=== PATIENT | female | born 1955 | race Caucasian/White ===

== ENCOUNTER 2019-07-20 00:58 | Day surgery (SDC) | payer MEDICARE, OTHER, SELFPAY ==
[2019-07-09 10:40] VITALS: BMI 27.3
[2019-07-20] VITALS (15 sets, daily range): BP systolic 94–152; BP diastolic 43–74; PULSE 80–94; RESP 14–86; TEMP 36.2–37.3; O2SAT 90–100
--- NOTE | 2019-07-20 07:18 | WPDHPUPDATE1 ---
History and Physical Update Update Date/Time: 07/20/19 07:18 History and Physical has been reviewed, including an updated exam of the patient. There are NO changes in the patient's condition. Risks, benefits, and alternatives have been discussed and questions answered. Patient agrees to proceed with procedure.
[2019-07-20] MEDS: LACTATED RINGERS 1,000 ML 30 ML IV CONT ×2 (10:00→13:37)
--- NOTE | 2019-07-20 10:20 | P.PNAN_ITS ---
Anes - Initial Pre Proc Eval Procedure: Operation Date: 07/20/19 12:00 Proposed Procedures p Robotic Sacrocolpopexy With Possible Urethral Sling - Leonides Irving MD Date/Time: 07/20/19 10:20 Surgeon: Leonides Irving MD Pre Op Diagnosis: Cystocele/ Uterine Prolapse Patient Data Age: 64 Gender: F Height: 5 ft 6 in Weight: 75.8 kg Last Vital Signs Temp 98.2 F 07/20/19 09:42 Pulse 93 07/20/19 09:42 Resp 18 07/20/19 09:42 BP 133/43 L 07/20/19 09:42 Pulse Ox 97 07/20/19 09:42 Allergies Allergy/AdvReac Type Severity Reaction Status Date / Time No Known Allergies Allergy Verified 07/20/19 09:47 Home Medications Medication Instructions Recorded Confirmed Type adalimumab [Humira Pen] 40 mg SUBCUT [id number] 07/09/19 07/20/19 History alendronate 35 mg PO WEEKLY 07/09/19 07/20/19 History amlodipine 10 mg PO DAILY 07/09/19 07/20/19 History cholecalciferol (vitamin D3) 2,000 unit PO DAILY 07/09/19 07/20/19 History [Vitamin D3] citalopram 40 mg PO DAILY 07/09/19 07/20/19 History hydrochlorothiazide 25 mg PO DAILY 07/09/19 07/20/19 History cugkpvlpysjl-Db-jpcf-minerals 1 tablet PO DAILY 07/09/19 07/20/19 History [Multiple Vitamin, Womens] simvastatin 40 mg PO DAILY 07/09/19 07/20/19 History Patient hx anesthesia problems: none Family hx anesthesia problems: none [facility] Past Medical History Medical History (Updated 07/20/19 @ 10:20 by Leandro Orosco MD) Anxiety Hyperlipidemia Hypertension Social History Social History (Updated 07/20/19 @ 10:21 by Leandro Orosco MD) Smoking packs per day: 0.5 Smoking cigarettes per day: 10.0 Years smoked: 25 Smoking pack-years: 12.50 Smoking status: Current every day smoker Alcohol intake: never Gender identity (if verbalized by the patient): Female Anes - Eval Final PreProcedure Day of Procedure 07/20/19 10:20 Patient weight: normal Heart: regular rate and rhythm Lungs: clear to auscultation Airway: Mallampati scale class II Neurological: alert and oriented Last oral intake: >/= 8 hours ASA classification: II Emergent: no Anesthetic plan: proceed Anesthesia type and monitoring: general ETT and standard monitoring Informed Consent: The patient's anesthetic plan and its attendant risks and benefits were discussed with the patient/family/POA. Questions were solicited and answers provided to the satisfaction of the patient/family/POA.
[2019-07-20] MEDS: ceFAZolin 2 GM/D5W 50 ML 2 GM/50 ML BAG IVPB (10:41)
[2019-07-20] MEDS: BUPIVACAINE/EPINEPHRINE 0.25% 50 ML VIAL 20 ML INFILTRATE (11:10)
--- NOTE | 2019-07-20 11:46 | SUR.OPER ---
david russo y-mesh [id number] lot [id number], exp 2023-10-16.
--- NOTE | 2019-07-20 12:59 | SUR.OPER ---
robot end [id number].
--- NOTE | 2019-07-20 13:04 | SUR.OPER ---
start urethral sling 13:04.
--- NOTE | 2019-07-20 13:09 | SUR.OPER ---
ye waller urethral mesh/lot [id number], exp 2022-03-18,
--- NOTE | 2019-07-20 13:22 | PM.PROC ---
Procedure Note - Detailed Date of procedure: 07/20/19 Pre-op diagnosis: Cystocele/ Uterine Prolapse Post hysterectomy vaginal vault prolapse Stress urinary incontinence Post-op diagnosis: same Procedure performed: Robotic assisted laparoscopic sacral colpopexy Nell urethral sling Description of procedure: She understands the risks of bleeding, infection, recurrence of prolapse, diskitis, postoperative voiding dysfunction including incontinence and retention, dyspareunia, persistent or recurrent stress incontinence, vaginal mesh extrusion, urinary tract mesh erosion, bowel injury or obstruction, damage to surrounding organs, medical related complications. Agrees to proceed She was correctly identified and informed consent was obtained. She is brought to the operating room. She was given general anesthesia. She was placed in the low lithotomy position. All pressure points were padded. She was given appropriate perioperative antibiotics. A time-out was performed. I anesthetized the skin 3 fingerbreadths cephalad to the umbilicus. I incised the skin. I located the fascia. I entered the fascia sharply. I placed Vicryl sutures for later fascial closure. I placed a midline trocar. Under direct vision 2 additional trocars were placed in the right and left upper quadrant. She was placed in steep Trendelenburg. The robot was docked. I then sat at the console. There was a adhesion of small bowel to the left lateral sidewall. This was taken down sharply. I took great care not to injure any bowel. This is a somewhat thick adhesion with some serosal excoriation. I did a figure of 8 Monocryl suture to buttress of the serosal excoriation. With the Sizer in the vagina I created a plane on the anterior and posterior vaginal wall. I took great care not to injure the vagina bladder or rectum. I introduced the mesh into the abdomen. I sewed the anterior leaflet of mesh on the anterior vaginal wall and posterior leaflet of mesh on the posterior vaginal wall with several sutures with 2 Goritex taking great care not to go through and through. I then reflected the colon laterally. I opened up the peritoneum over the sacral promontory. I carried this incision into the cul-de-sac. I located the ureter and kept lateral. I freed up the edges of the peritoneum. I located the anterior longitudinal ligament of the sacrum. I then tensioned my mesh appropriately. I did a vaginal exam to ensure prolapse reduction without undue tension. I then sewed the proximal leaflet of mesh onto the ligament with 3 sutures of 2 0 Circle-Ochoa. I used a 2 0 Monocryl to completely and meticulously retroperitonealized all mesh. I allowed the colon to go back into its normal anatomic location no sign of any impingement or stricturing. The abdomen was exited. Fascial sutures were closed. Skin was closed. Glue was applied. She was repositioned and prepped for urethral sling. I marked out the thigh incisions. I anesthetized the skin and made those incisions. I anesthetized the anterior vaginal wall over the mid urethra. I made a 1 cm incision. I dissected out laterally taking great care not to injure the urethra or the vaginal wall. I passed the helical trocars. First on the left and then on the right. This was done from the thigh incision towards the vaginal incision. The sling was connected to the trocars and brought out through the thigh incision. I tensioned the sling appropriately. I cut and removed the plastic sheaths. I then closed the incision with 2 0 Vicryl. Cystoscopy showed no surgical artifact in the bladder. No surgical artifact in the urethra. Ureteral orifices were seen to excrete clear yellow urine. The White catheter was replaced. She was awakened and transferred to the PACU in stable condition. Implants: Y mesh Anesthesia: GETA Surgeon: Leonides Irving MD Drains: Yes (White catheter) Packing: No Pathology: none sent Complications: No immediate complications
--- NOTE | 2019-07-20 16:00 | PC.NURSE ---
1500= Pt. admitting to room 281 per hospital bed from PACU. Oriented to room and call light system. Very pleasant and cooperative. Side rails up x2. No complaints voiced at this time. Family at side.
[2019-07-20] MEDS: KETOROLAC 15 MG/ML VIAL (*BKC) IV PUSH (16:58)
[2019-07-20] MEDS: KCL 20 MEQ/D5/0.45% SOD CHL 1,000 ML 100 ML IV CONT (16:58)
[2019-07-21 00:30] VITALS: BP 113/56; PULSE 78; RESP 16; TEMP 37; O2SAT 98
[2019-07-21] MEDS: KCL 20 MEQ/D5/0.45% SOD CHL 1,000 ML 100 ML IV CONT (02:14)
[2019-07-21 03:00] VITALS: BP 107/52; PULSE 75; RESP 20; TEMP 36.9; O2SAT 97
[2019-07-21 07:45] VITALS: BP 92/57; PULSE 87; RESP 18; TEMP 37.6; O2SAT 96
--- NOTE | 2019-07-21 07:59 | WPDANESPN ---
Anes - Prog Note Post-Op Date/Time: 07/21/19 07:59 Cardiovascular status: normal Respiratory status: other (remains on nc) Mental status: baseline Post-Op hydration status: normal Vital Signs: Last Vital Signs Temp 98.5 F 07/21/19 03:00 Pulse 75 07/21/19 03:00 Resp 20 07/21/19 03:00 BP 107/52 L 07/21/19 03:00 Pulse Ox 97 07/21/19 03:00 I/O: Intake & Output 07/20/19 07/20/19 07/21/19 15:59 23:59 07:59 Intake Total 899 966 1008 Output Total 735 532 8001 Balance 50 -275 550 Post-procedural complaints: none Patient Feedback: Patient satisfied with anesthetic care.
[2019-07-21] MEDS: ENOXAPARIN 30 MG/0.3 ML SYRINGE SUB-Q (09:30)
[2019-07-21] MEDS: DOCUSATE SODIUM 100 MG CAPSULE PO (09:31)
[2019-07-21] MEDS: CITALOPRAM HYDROBROMIDE 20 MG TABLET 40 MG PO (09:31)
[2019-07-21] MEDS: SIMVASTATIN 20 MG TABLET 40 MG PO (09:32)
[2019-07-21] MEDS: hydroCHLOROthiazide 25 MG TABLET PO (09:32)
[2019-07-21] MEDS: AMLODIPINE BESYLATE 5 MG TABLET 10 MG PO (09:33)
[2019-07-21] MEDS: CHOLECALCIFEROL 1,000 UNIT TABLET 2000 UNITS PO (09:35)
== END 2019-07-21 13:35 | disposition home or self-care (01) ==
LOC: ANHSURGERY 13:30 → ANHOB2 14:51
PROVIDERS: PCP Nurse Practitioner Family; Visit Provider Urology
PROC: (CPT 57425; principal; 2019-07-20 12:00)
DX: N99.3 Prolapse of vaginal vault after hysterectomy (principal); N39.3 Stress incontinence (female) (male); I10 Essential (primary) hypertension; E78.5 Hyperlipidemia, unspecified; F41.9 Anxiety disorder, unspecified; F17.210 Nicotine dependence, cigarettes, uncomplicated
CPT/HCPCS: 57425; 57288; S2900; 99199; A9270; C1771; C1781; J0131; J0690; J1100; J1170; J1650; J1885; J2250; J2370; J2405; J2704; J2710; J3010; J3480; J7030; J7120

== ENCOUNTER 2020-09-16 12:22 | Outpatient (CLI) | payer MEDICARE, OTHER, SELFPAY ==
--- NOTE | ~2020-09-16 | US_ITS ---
EXAMINATION: US carotid duplex BI DATE: 09/16/2020 13:29 INDICATION: Bilateral carotid bruits TECHNIQUE: Grayscale, color Doppler, and pulsed Doppler images of the cervical carotid arteries were obtained. The degree of vessel stenosis is placed in one of the following categories: normal, <50%, 5 0-69%, >=70% but less than near-occlusion, near-occlusion, or total occlusion. Note that percent sten osis relative to normal distal artery lumen diameter is indirectly measured from velocity measurement s as described by Thomas, et al. Radiology 2003; 229:340-346. Notes: Normal: Peak systolic velocity <125 centimeters/sec and no plaque <50%. Peak systolic velocity <125 ( EDV <40; ICA/CCA PSV ratio <2.0; used these factors only a tandem lesions or low cardiac output or co ntralateral disease) 50-69 %: PSV 125-230 (EDV 40-100; ratio 2-4) >= 70% but less than near occlusion: PSV greater than 230 (EDV > 100; ratio> 4.0) Near Occlusion: PSV that is variable; markedly narrowed lumen Occlusion: Absent flow on color/spectral Doppler and no lumen on engel scale. COMPARISON: None. FINDINGS: RIGHT: The right common carotid artery (CCA) peak systolic velocity (PSV) is 116 cm/s. The right internal ca rotid artery (ICA) PSV is 152 cm/s. The right ICA end-diastolic velocity (EDV) is 26 cm/s. The right ICA/CCA PSV ratio is 1.3. The external carotid artery (ECA) PSV is 165 cm/s. There is antegrade flow in the right vertebral artery. LEFT: The left CCA PSV is 116 cm/s. The left ICA PSV is 157 cm/s. The left ICA EDV is 39 cm/s. The left ICA /CCA PSV ratio is 1.4. The ECA PSV is 131 cm/s. There is antegrade flow in the left vertebral artery . IMPRESSION: 1. 50-69% stenosis in the right internal carotid artery by sonographic criteria. 2. 50-69% stenosis in the left internal carotid artery by sonographic criteria. Reviewed, dictated and finalized at location B. IMPRESSION: 1. 50-69% stenosis in the right internal carotid artery by sonographic criteria . 2. 50-69% stenosis in the left internal carotid artery by sonographic criteria.
== END 2020-09-16 12:23 | disposition home or self-care (01) ==
PROVIDERS: PCP Family Medicine; Visit Provider Nurse Practitioner Family
DX: R09.89 Other specified symptoms and signs involving the circulatory and respiratory systems (principal); I65.23 Occlusion and stenosis of bilateral carotid arteries
CPT/HCPCS: 93880

== ENCOUNTER 2022-06-14 17:56 | Emergency (ER) | payer MEDICARE, OTHER, SELFPAY ==
[2022-06-14 18:13] VITALS: BP 114/53; PULSE 95; RESP 16; TEMP 36.9; O2SAT 98
[2022-06-14 18:15] VITALS: BP 114/53; PULSE 95; RESP 16; TEMP 36.9; O2SAT 98
--- NOTE | 2022-06-14 18:19 | ED.ANIMALBIT ---
HPI - Animal Bite General Chief Complaint: Animal Bite Stated Complaint: Animal Bite Time Seen by Provider: 06/14/22 18:04 Source: patient Mode of arrival: ambulatory Limitations: no limitations History of Present Illness HPI narrative: Ms. Peraza is a 67-year-old female patient presenting to clinic today with complaints of a cat bite wound to the right wrist. She reports that this happened this morning. She believes that her tetanus shot is up-to-date. Has pain and swelling to the right wrist and also a puncture wound to the left index finger. Related Data Home Medications Medication Instructions Recorded Confirmed adalimumab 40 mg/0.8 mL 40 mg subcut [id number] 07/09/19 06/14/22 subcutaneous pen kit (Humira Pen) alendronate 35 mg tablet 35 mg PO WEEKLY 07/09/19 06/14/22 amlodipine 10 mg tablet 10 mg PO DAILY 07/09/19 06/14/22 cholecalciferol (vitamin D3) 50 2,000 unit PO DAILY 07/09/19 06/14/22 mcg (2,000 unit) tablet (Vitamin D3) citalopram 40 mg tablet 40 mg PO DAILY 07/09/19 06/14/22 hydrochlorothiazide 25 mg tablet 25 mg PO DAILY 07/09/19 06/14/22 fpsrgrojrcdu-Ec-jisc-minerals 1 tablet PO DAILY 07/09/19 06/14/22 (Multiple Vitamin, Womens tablet) simvastatin 20 mg tablet 40 mg PO DAILY 07/09/19 06/14/22 aspirin 81 mg chewable tablet 81 mg PO DAILY 06/14/22 06/14/22 Allergies Allergy/AdvReac Type Severity Reaction Status Date / Time No Known Allergies Allergy Verified 06/14/22 18:13 Review of Systems Review of Systems: Pertinent positives per HPI. Patient denies any fever, chills, rash, headache, visual changes, dizziness, cough, runny nose, sore throat, shortness of breath, chest pain, palpitations, nausea, vomiting, diarrhea, constipation, abdominal pain, or any urinary issues. [facility] Past Medical History Medical History Anxiety Hyperlipidemia Hypertension Social History Social History Smoking packs per day: 0.5 Smoking cigarettes per day: 10.0 Years smoked: 25 Smoking pack-years: 12.50 Smoking status: Current every day smoker Alcohol intake: never Gender identity (if verbalized by the patient): Female Comments At the time of my signature, I reviewed and agree with the nursing past medical, surgical, social, and family history. There is no relevant family history pertinent to the patient complaint. Exam Narrative: General: Well-developed, well nourished, in no apparent distress Head: Normocephalic, atraumatic. Cardio: Regular rate and rhythm, s1 and s2 normal, no murmur appreciated. Resp: Clear to auscultation bilaterally, no rhonchi, rales, wheezing or rubs. Integumentary: [place], warm, and dry, 3 puncture wounds to the medial right wrist with swelling , erythema,and redness, small puncture wound to the distal left index finger with minimal swelling Course Course Emergency Course: Portions of this record may have been created with voice recognition software. Level of Care: Express Care Visit Vital Signs Vital signs: Vital Signs Temperature 36.9 C 06/14/22 18:13 Pulse Rate 95 06/14/22 18:13 Respiratory Rate 16 06/14/22 18:13 Blood Pressure 114/53 L 06/14/22 18:13 Pulse Oximetry 98 06/14/22 18:13 Oxygen Delivery Room Air 06/14/22 18:13 Temperature 36.9 C 06/14/22 18:15 Pulse Rate 95 06/14/22 18:15 Respiratory Rate 16 06/14/22 18:15 Blood Pressure 114/53 L 06/14/22 18:15 Pulse Oximetry 98 06/14/22 18:15 Oxygen Delivery Room Air 06/14/22 18:15 Vital signs reviewed MDM - Animal Bite MDM Narrative Medical decision making narrative: At the time of visit patient is resting comfortably on the exam table. I suspect patient has an infected cat bite. Prescription for Augmentin was sent to the pharmacy. Patient reports that her tetanus shot is up-to-date. Supportive measures were discussed with the pa
== END 2022-06-14 18:27 | disposition home or self-care (01) ==
PROVIDERS: Emergency Provider Nurse Practitioner Family; PCP Family Medicine
DX: S61.531A Puncture wound without foreign body of right wrist, initial encounter (principal); S61.231A Puncture wound without foreign body of left index finger without damage to nail, initial encounter; W55.01XA Bitten by cat, initial encounter; F17.210 Nicotine dependence, cigarettes, uncomplicated; F41.9 Anxiety disorder, unspecified; E78.5 Hyperlipidemia, unspecified; I10 Essential (primary) hypertension; Z79.82 Long term (current) use of aspirin
CPT/HCPCS: 99213; G0463

== ENCOUNTER 2025-05-19 10:08 | Emergency (ER) | payer MEDICARE, SELFPAY ==
--- NOTE | ~2025-05-19 | CT_ITS ---
EXAMINATION: CT facial & cervical spine wo DATE: 05/19/2025 10:40 INDICATION: Head injury. TECHNIQUE: Computed tomography (CT) of the maxillofacial region and cervical spine was performed without intravenous contrast. Automated exposure control and iterative reconstruction technique were employed. The dose-length product was 180.92 mGy-cm. COMPARISON: None FINDINGS: MAXILLOFACIAL CT: The orbits are normal. There is mucosal thickening in right sphenoid sinus with sclerosis of the sinus valverde, consistent with chronic sinusitis. The mastoid air cells are normal. There are fracture deformities of the nasal bones. There is rightward deviation of the nasal septum. CERVICAL SPINE CT: There is mild scarring at the lung apices. There is mild kyphosis of cervical spine. Vertebral body heights are normal. There is mildly decreased disc height at C2-C3 and C3-C4, severely decreased disc height at C4-C5, C5-C6, and C6-C7, and mildly decreased disc height at C7-T1. There is multilevel oqrs-ld-ctriffmg facet joint osteoarthritis. There is multilevel severe uncovertebral joint osteoarthritis. There is mild neural foraminal stenosis at multiple levels on either side. On the right, there is moderate neural foraminal stenosis at C5-C6. On the left, there is moderate neural foraminal stenosis at C4-C5 and C5-C6. There is mild central canal stenosis at the disc levels from C3-C4 through C6-C 7. IMPRESSION: 1. Age-indeterminate fractures of the nasal bones. 2. Severe cervical spondylosis. Reviewed, dictated and finalized at location E. STIGATOR VICE
--- NOTE | ~2025-05-19 | CT_ITS ---
EXAMINATION: CT brain wo con DATE: 05/19/2025 10:40 INDICATION: Status post fall. Loss of consciousness. TECHNIQUE: Computed tomography (CT) of the head was performed without intravenous contrast. The dose-length product was 605.33 mGy-cm. Automated exposure control and iterative reconstruction technique were employed. COMPARISON: None FINDINGS: Brain parenchymal volume is normal for age. There are scattered mild periventricular and subcortical white matter changes, most likely related to small vessel ischemic disease (microangiopathy). No ventriculomegaly or midline shift. Basilar cisterns are patent no acute hemorrhage, infarction, mass or mass effect. Paranasal sinuses and mastoids are pneumatized. No depressed skull fractures. IMPRESSION: 1. No acute intracranial abnormality. Reviewed, dictated and finalized at location I. ODIAGNOSTIC TECH
[2025-05-19 10:16] VITALS: BP 125/65; PULSE 103; RESP 17; TEMP 36.7; O2SAT 99
--- NOTE | 2025-05-19 10:50 | ED.HEATRA ---
HPI - Head Injury General Chief complaint: Head Injury Stated complaint: fall on saturday Time Seen by Provider: 05/19/25 10:49 History of Present Illness HPI Narrative: Patient presents here after she had a fall on her back porch on Saturday when she when out to smoke, after losing her balance. She did land on her face, has 2 black eyes, was finally convinced to come in by her daughter. She denies any complaints other than pain to touch of her nose Related Data Home Medications ?Medication ?Instructions ?Recorded ?Confirmed ?Last Taken ?Type adalimumab 40 mg/0.8 mL 40 mg subcut [id number] 07/09/19 06/14/22 07/06/19 History subcutaneous pen kit (Humira Pen) alendronate 35 mg tablet 35 mg PO WEEKLY 07/09/19 06/14/22 07/15/19 History amlodipine 10 mg tablet 10 mg PO DAILY 07/09/19 06/14/22 07/20/19 08:30 History cholecalciferol (vitamin D3) 50 2,000 unit PO DAILY 07/09/19 06/14/22 07/19/19 History mcg (2,000 unit) tablet (Vitamin D3) citalopram 40 mg tablet 40 mg PO DAILY 07/09/19 06/14/22 07/20/19 08:30 History hydrochlorothiazide 25 mg tablet 25 mg PO DAILY 07/09/19 06/14/22 07/19/19 History sevlubsgkyuh-Wb-ifoz-minerals 1 tablet PO DAILY 07/09/19 06/14/22 07/13/19 History (Multiple Vitamin, Womens tablet) simvastatin 20 mg tablet 40 mg PO DAILY 07/09/19 06/14/22 07/19/19 History aspirin 81 mg chewable tablet 81 mg PO DAILY 06/14/22 06/14/22 Unknown History Allergies Allergy/AdvReac Type Severity Reaction Status Date / Time No Known Allergies Allergy Verified 05/19/25 10:09 Review of Systems Review of Systems: All systems reviewed & are unremarkable except as noted in HPI and below PMFSH Past Medical History Medical History Anxiety Hyperlipidemia Hypertension Social History Social History Smoking packs per day: 0.5 Smoking cigarettes per day: 10.0 Years smoked: 25 Smoking pack-years: 12.50 Smoking status: Current every day smoker Alcohol intake: never Gender identity (if verbalized by the patient): Female Exam Narrative: EXAMINATION OF ORGAN SYSTEMS/BODY AREAS: Constitutional: Vital signs per nursing GENERAL:[No acute distress, non-toxic appearing.] HEAD: Normal with no signs of head trauma. EYES: [place]accoon eyes ENT: Swelling and pain and bruising to bridge of nose LUNGS: Nonlabored breathing. HEART: [Regular rate and rhythm] ABD: [Soft], [nontender to palpation] EXT: Normal range of motion SKIN: Bruising bilateral eyes, bridge of nose NEURO: [Alert. No gross focal sensory or strength deficits.] PSYCH: Normal affect Course Vital Signs Vital signs: Vital Signs Temperature 98.0 F 05/19/25 10:16 Pulse Rate 103 H 05/19/25 10:16 Respiratory Rate 17 05/19/25 10:16 Blood Pressure 125/65 05/19/25 10:16 Pulse Oximetry 99 05/19/25 10:16 Oxygen Delivery Room Air 05/19/25 10:16 Temperature 98.0 F 05/19/25 10:16 Pulse Rate 103 H 05/19/25 10:16 Respiratory Rate 17 05/19/25 10:16 Blood Pressure 125/65 05/19/25 10:16 Pulse Oximetry 99 05/19/25 10:16 Oxygen Delivery Room Air 05/19/25 10:16 [facility] MDM Narrative Medical decision making narrative: Patient presents after fall several days ago with injury to her face, denies injuries elsewhere. On exam she has bilateral black eyes, a bruising to nasal bridge with swelling, appears slightly deformed. Otherwise very well-appearing. No tenderness anywhere else. CT head and C-spine negative, has had facial scan shows nasal fractures. Discussed this with patient, follow-up to ENT with return precautions. Differential Diagnosis Differential Diagnosis: intracranial hemorrhage, fractures, contusions Imaging Data Radiologist's impression: ITS Impressions Head CT 05/19/25 10:43 IMPRESSION: 1. No acute intracranial abnormality. Head/Cervical Spine/Facial Bones CT 05/19/25 11:08 IMPRESSION: 1. Age-indeterminate fractures of the nasal bones. 2. Severe cervical spondylosis. Discharge Plan Discharge Clinical Impression: Closed head injury Patient Disposition: Home Condition: Stable Instructions: Nasal Fracture (ED), Black Eye (ED) Additional Instructions: Thankfully there is no bleeding in your brain, but it your nose is broken. You can follow up with ENT, make sure to try to put ice on your face, take Tylenol as needed for pain, come back to the ER for any further issues. Patient Language: Turkish Prescriptions: No Action aspirin 81 mg Tablet,Chewable 81 mg PO DAILY amoxicillin-pot clavulanate 875-125 mg tablet 1 tablet PO Q12H 7 Days Qty: 14 0RF citalopram 40 mg Tablet 40 mg PO DAILY alendronate 35 mg Tablet 35 mg PO WEEKLY amlodipine 10 mg Tablet 10 mg PO DAILY simvastatin 20 mg Tablet 40 mg PO DAILY hydrochlorothiazide 25 mg Tablet 25 mg PO DAILY Multiple Vitamin, Womens Tablet 1 tablet PO DAILY Humira Pen 40 mg/0.8 mL Pen Injector Kit 40 mg SUBCUT [id number] cholecalciferol (vitamin D3) [Vitamin D3] 2,000 unit Tablet 2,000 unit PO DAILY docusate sodium [Colace] 100 mg capsule 100 mg PO BID Qty: 60 0RF Follow-up/Referrals: Casey Dumont MD [Physician, Ear, Nose, Throat] - 2 Days PHYSICIAN NOT ON STAFF,NONSTAFF [Primary Care Provider]
--- OUTSIDE RECORDS SUMMARY | 2025-05-19 11:19 | XMS_ITS | Clinical Summary ---
Author Organization [facility] [place] Address [address] [place] [address] Care Team Providers Care Stone Setter Name Role Phone Unavailable Primary Care Provider Unavailabl e Social History Tobacco Use Types Packs/Day Years Used Date Smoking Tobacco: Never Assessed Comments Unknown Sex and Gender Information Value Date Recorded Sex Assigned at Not on file Legal Sex Female 1:35 PM CDT Gender Identity Not on file Sexual Orientation Not on file Plan of Treatment Upcoming Encounters Date Type Department Care Team (Late st Contact Info) Description 06/08/2025 10:30 AM 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 Office Visit [facility] Oncology and Hematology - [place] [address] [place] [address] Elle Oleary MD [address] [place] [address] Health Maintenance Due Date Last Done Comments BREAST CANCER SCREENING 1994 FIT-DNA Q 3 years 1999 FIT/FOBT Q 1 year 1999 Flex Sig/CT Colonography Q 5 years 1999 DTAP/TDAP/TD VACCINES (2 - T d or Tdap) 03/04/2023 03/04/2013 INFLUENZA VACCINE (#1) 2025 3, 03/01/2022, 03/29/2021, Additional history exists COVID-19 Vaccine (2 - 2024-2 6 season) 2025 03/01/2022 OSTEOPOROSIS SCREENING 09/01/2028 09/02/2023 RSV VACCINE (60+ or ) (1 - 1-dose 75+ series) 2029 COLORECTAL SCREENING 10/12/2034 10/12/2024 Colorectal Cancer Screening 10/12/2034 ZOSTER VACCINE Completed 04/15/2020, 02/10/2020 PNEUMOCOCCAL VACCINE 50+ YEARS Completed 05/13/2023 , 04/22/2019 Insurance [facility] [id number]
--- OUTSIDE RECORDS SUMMARY | 2025-05-19 11:19 | XMS_ITS | Clinical Summary ---
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 Gender Identity Not on file Sexual Orientation Not on file Obstetrics History Para Term AB IAB SAB Ectopic Multiple Livin g Live Births 2 Date Outcome GA Total Labor Labor/2nd/3rd Weight Sex Type Anes PTL Kavitha A1 A5 Name Clin Plan of Treatment Health Maintenance Due Date Last Done Comments Colon Cancer Screening-Colonoscopy 1954 Depression Screening 1954 Fall Risk Assessment 1954 Hepatitis C Screening 1954 Hepatitis B Screening 1972 Well Visit 65+ 2019 DTaP/Tdap/Td Vaccine (2 - Td or Tdap) 03/04/2023 03/04/2013 Covid-19 Vaccine (5 - 2024-2 6 season) 2025 03/01/2022, 02/16/2021, 08/18/2020, Additional history exists Influenza Vaccine (#1) 2025 , 02/10/2020, 03/24/2019, Additional history exists Osteoporosis Screening-Bone Density Scan 09/01/2025 09/02/2023, 07/14/2021, 11/29/2017, Additional history exists Breast Cancer Screening-Mammogram 09/22/2025 09/22/2024, 09/02/2023, 08/30/2022, Additional history exists Zoster Vaccine Completed 04/15/2020, 02/10/2020 Pneumococcal vaccine 65+ Completed 05/13/2023, 1111/2018 Procedures Procedure Name Priority Date/Time Associated Diagnosis Comments SCREENING MAMMOGRAM BILATERAL W NATHANAEL Schedule Routine, Read Routine (OP Routine) 09/22/2024 10:18 AM CDT Screening mammogram, encounter for DEXA AXIAL SKELETON BONE DENSITY 1 OR MORE SITES Schedule Routine, Read Routine (OP Routine) 09/02/2023 3:27 PM CDT Post-menopause from Last 3 Months or Most Recently Relevant to Health Maintenance Results * Screening Mammogram Bilateral W Nathanael (09/22/2024 10:18 AM CDT) Anatomical Region Laterality Modality Breast Bilateral Mammography Impressions 09/22/2024 10:28 AM CDT BI-RADS ATLAS category (overall): 2 - Benign There is no mammographic evidence of malignancy. A 1 year screening mammogram is recommended. The patient has been or will be contacted. We recommend annual screening mammography for women at average risk of breast cancer beginning at age 40, based on guidelines of the [employer] (ACR Practice Parameter for the Performance of Screening and Diagnostic Mammography) and [employer]nec[employer]. For women with and elevated risk of breast cancer, please refer to the ACR Practice Parameter for specific screening recommendations. The patient will be entered into a reminder system with a target due date of 1 year for her next screening exam. Narrative 09/22/2024 10:28 AM CDT Screening Mammogram Bilateral W Nathanael: 09/22/24 The study was acquired using full field digital technology and interpreted from soft copy. 2D digital mammographic views, as well as 3D digital tomosynthesis were performed in the CC and MLO projections. CLINICAL: Screening mammogram, encounter for. No relevant medical history has been documented for this patient. No known family history of breast cancer. COMPARISONS: 09/02/2023 Screening Mammogram Bilateral W Nathanael 08/30/2022 Screening Mammogram Bilateral W Nathanael 07/03/2021 Screening Mammogram Bilateral W Nathanael 04/29/2019 Screening Mammogram Bilateral W Nathanael BREAST TISSUE: There are scattered areas of fibroglandular density. FINDINGS: There are benign scattered calcifications in both breasts. There is no new suspicious finding in either breast on mammogram. us Self Screening Mammogram IMG MAMMO PROCEDURES Fi nal Result * Dexa Axial Skeleton Bone Density 1 or 2 Site (09/02/2023 3:27 PM CDT) Anatomical Region Laterality Modality Body N/A Mammography 09/02/2023 3:30 PM CDT Narrative 09/02/2023 3:31 PM CDT EXAM DESCRIPTION: DEXA AXIAL SKELETON BONE DENSITY 1 OR MORE SITES REASON FOR STUDY: 68 y/o year old F with given history of: Postmenopausal status. History of smoking. Patient has taken/is taking Fosamax, vitamin-D and calcium. 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 LEFT HIP: Total BMD is 0.853 g/cm2 T-score is -0.7 This is a 1.7% decrease in comparison to prior exam which is not statistically significant. Femoral neck BMD is 0.680 g/cm2 T-score is -1.5 FRAX: 10 year risk for a major osteoporotic fracture is 10 %, 10 year risk for a hip fracture is 2.3 % IMPRESSION: Low bone mass REFERENCE: Bone mineral density: T-Score: Normal (T-score above or = -1.0) Low bone mass (T-score between -1.0 and -2.5) replaces the previously used term osteopenia Osteoporosis (T-score = or below -2.5) Z-Score: Within the expected range for age (Z-score above -2.0) Below the expected range for age (Z-score is -2.0 or below) Please see below follow up recommendations. Medical evaluation for secondary causes of low bone mineral density may be appropriate. FRAX is a World Health Organization validated fracture risk assessment tool that calculates a person's 10 year probability of a major osteoporosis related fracture and hip fracture. According to the National Osteoporosis Foundation guidelines, postmenopausal women and men age 50 or older with low bone mass and a 10 year probability of a major osteoporosis related fracture = or greater than 20% or a 10 year probability of a hip fracture = or greater than 3% should be considered for pharmacological treatment for the prevention of osteoporosis. For further information, including treatment recommendations, please refer to the 2019 ISCD Official Positions (http://www.iscd.org) and the NOF's Clinician's Guide to Prevention and Treatment of Osteoporosis (http://www.nof.org/professionals/clinical-guidelines) THIS IS AN ELECTRONICALLY VERIFIED FINAL REPORT 09/02/2023 3:31 PM - Electronically signed by Winifred Gaspar M.D. TW: TW Report ID: [id number] Reading Location: [id number] Procedure Note Winifred Gaspar MD - 09/02/2023 EXAM DESCRIPTION: DEXA AXIAL SKELETON BONE DENSITY 1 OR MORE SITES REASON FOR STUDY: 68 y/o year old F with given history of:Postmenopausal status. History of smoking. Patient has taken/is taking Fosamax,vitamin-D and calcium. 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 LEFT HIP: Total BMD is 0.853 g/cm2 T-score is -0.7 This is a 1.7% decrease in comparison to prior exam which is notstatistically significant. Femoral neck BMD is 0.680 g/cm2 T-score is -1.5 FRAX: 10 year risk for a major osteoporotic fracture is 10 %, 10 year risk for ahip fracture is 2.3 % IMPRESSION: Low bone mass REFERENCE: Bone mineral density: T-Score: Normal (T-score above or = -1.0) Low bone mass (T-score between -1.0 and -2.5) replaces thepreviously used term osteopenia Osteoporosis (T-score = or below -2.5) Z-Score: Within the expected range for age (Z-score above -2.0) Below the expected range for age (Z-score is -2.0 or below) Please see below follow up recommendations. Medical evaluation forsecondary causes of low bone mineral density may be appropriate. FRAX is a World Health Organization validated fracture risk assessmenttool that calculates a person's 10 year probability of a major osteoporosisrelated fracture and hip fracture. According to the National OsteoporosisFoundation guidelines, postmenopausal women and men age 50 or older with low bonemass and a 10 year probability of a major osteoporosis related fracture = or greater than 20% or a 10 year probability of a hip fracture = or greaterthan 3% should be considered for pharmacological treatment for the preventionof osteoporosis. For further information, including treatment recommendations, please referto the 2019 ISCD Official Positions (http://www.iscd.org) and the NOF's Clinician's Guide to Prevention and Treatment of Osteoporosis (http://www.nof.org/professionals/clinical-guidelines) THIS IS AN ELECTRONICALLY VERIFIED FINAL REPORT 09/02/2023 3:31 PM - Electronically signed by Winifred Gaspar M.D. TW: TOMI Report ID: [id number] Reading Location: [place] [address] Columba GARCIA DXA PROCEDURES Final Resul t from Last 3 Months or Most Recently Relevant to Health Maintenance Insurance [facility]ICARE [facility] HEALTH [facility]AN [facility] Care Teams Equipment Tech Relationship Specialty Start Date End Date Columba Rowe PA [address] [place] [id number] PCP - General Physician Blueprint Blocker 09/07/24
--- OUTSIDE RECORDS SUMMARY | 2025-05-19 12:35 | XMS_ITS | Clinical Summary ---
Author Organization [facility] Address [facility] [place] [address] Care Team Providers Care Social Media Job Titles Name Role Phone Columba Rowe PA-C Primary Care Provider [phone] Allergies No known active allergies Medications HUMIRA PEN 40 MG/0.8ML injection Inject 0.8 mLs (40 mg total) into the skin every 14 (fourteen) days. 1 Active Cholecalciferol (VITAMIN D3 OR) Take 1 tablet by mouth daily. Active Multiple Vitamins-Minerals (MULTIVITAMIN ADULTS OR) Active aspirin EC (ECOTRIN) 81 MG tablet Take 1 tablet (81 mg total) by mouth daily. Active valACYclovir 1 g tablet Take 2 tablets (2,000 mg total) by mouth 2 (two) times daily. 2 Active atorvastatin (LIPITOR) 10 MG tabletIndications:H yperlipidemia, unspecified hyperlipidemia type TAKE 1 TABLET NIGHTLY AT BEDTIME 90 tablet 3 5 Active amLODIPine (NORVASC) 10 MG tabletIndications:P rimary hypertension TAKE 1 TABLET DAILY 90 tablet 3 5 Active citalopram (CELEXA) 40 MG tabletIndications:G eneralized anxiety disorder,Current mild episode of major depressive disorder without prior episode Take 1 tablet (40 mg total) by mouth daily. 90 tablet 5 Active alendronate (FOSAMAX) 35 MG tabletIndications:O steopenia of lumbar spine TAKE 1 TABLET EVERY WEEK 12 tablet 3 5 Active hydroCHLOROthiazide (HYDRODIURIL) 25 MG tabletIndications:P rimary hypertension TAKE 1 TABLET DAILY 90 tablet 3 5 Active Active Problems Problem Noted Date Diagnosed Date Leukocytosis, unspecified type 05/05/2025 Elevated blood sugar 11/12/2023 Postmenopause 05/13/2023 Primary hypertension 03/29/2021 Hyperlipidemia, unspecified hyperlipidemia type 03/29/2021 Generalized anxiety disorder 03/29/2021 Cigarette nicotine dependence without complicati on 03/29/2021 Osteopenia of lumbar spine 03/29/2021 History of colon polyps 03/29/2021 Resolved Problems Problem Noted Date Diagnosed Date Resolved Date Current mild episode of vj r depressive disorder without prior episode 03/29/2021 Encounters Date Type Department Care Team Description 05/05/2025 3:40 PM AGRICULTURAL EQUIPMENT SALES ENGINEER Office Visit [address] [address] Columba Rowe PA-C Anxiety (Patient present for Anxiety with labs) 05/05/2025 Travel 05/01/2025 Results Follow-Up [address] [address] Columba Rowe PA-C COMPREHENSIVE METABOLIC PANEL, HEMOGLOBIN, GLYCOSYLATED, LIPID PANEL from Last 3 Months Immunizations Immunization Administration Dates Next Due Arexvy Respiratory Syncytial Virus (RSV, adjuvanted) 0.5 mL, PF 05/24/2023 Fluzone High Dose - >Age 65 (Prefilled Syringe) 02/28/2023,03/01/2022,03/29/2021,2019 Influenza (Generic) 02/14/2017, 6,04/03/2015,2013,03/04/2013 Influenza Adult (Generic) 02/10/2020,01/2019,03/13/2018,2016,03/18/2016,04/03/2015,03/15/2014,0 03/04/2013 PFIZER COVID-19 (ORIGINAL FORMULATION, PURPLE CAP) mRNA, LNP-S, PF, 30 MCG/0.3 ML DOSE 03/01/2022 PFIZER COVID-19 BIVALENT (12 +) mRNA, LNP-S, PF, 30 MCG/0.3 ML DOSE 03/01/2022 Pneumococcal (Pneumovax 23) 05/13/2023 Pneumococcal (Prevnar 13) 04/22/2019 Shingrix 04/15/2020,02/10/2020 Tdap (Generic) 03/04/2013 Family History Medical History Relation Comments No Known Problems Brother Multiple Sclerosis Daughter Hypertension Mother No Known Problems Son Relation Status Comments Brother Alive Daughter Alive Father Mother Son Alive Social History Tobacco Use Types Packs/Day Years Used Date Smoking Tobacco: Every Day Cigarettes 1 15 Smokeless Tobacco: Never Tobacco Cessation:Ready to Q uit: Yes; Counseling Given: Yes Alcohol Use Standard Drinks/Week Comments Not Currently 0 (1 standard drink = 0.6 oz pur e alcohol) Socially PHQ-2 Answer Date Recorded Patient Health Questionnaire-2 Score 0 11/18/2024 AUDIT-C Answer Date Recorded Frequency of Alcohol Consumption Not on file 05/05/2025 Q2: How many drinks containi ng alcohol do you have on a typical day when you are drinking? Patient does not drink Frequency of Binge Drinking Not on file 04/17 Comments No Sex and Gender Information Value Date Recorded Sex Assigned at Not on file Legal Sex Female 8:07 PM CDT Gender Identity Female 06/30/2021 11:18 AM AGRICULTURAL EQUIPMENT SALES ENGINEER Sexual Orientation Straight 06/30/2021 11 :18 AM AGRICULTURAL EQUIPMENT SALES ENGINEER Last Filed Vital Signs Vital Sign Reading Time Taken Comments Blood Pressure 130/60 05/05/2025 4:01 PM AGRICULTURAL EQUIPMENT SALES ENGINEER Pulse 92 05/05/2025 3:35 PM AGRICULTURAL EQUIPMENT SALES ENGINEER Temperature 36.4 C (97.6 F) 05/05/2025 3:35 PM AGRICULTURAL EQUIPMENT SALES ENGINEER Respiratory Rate 16 05/05/2025 3:35 PM AGRICULTURAL EQUIPMENT SALES ENGINEER Oxygen Saturation 100% 05/05/2025 3:35 PM AGRICULTURAL EQUIPMENT SALES ENGINEER Inhaled Oxygen Concentration - - Weight 72.1 kg (159 lb) 05/05/2025 3:35 PM AGRICULTURAL EQUIPMENT SALES ENGINEER Height 165.1 cm (5' 5) 01/19/2025 10:50 AM CDT Body Mass Index 26.46 01/19/2025 10:50 AM CDT Plan of Treatment Upcoming Encounters Date Type Department Care Team (Late st Contact Info) Description 11/10/2025 10:00 AM CDT Office Visit [facility] - [place] [place] [id number] Columba Rowe PA-C [address] [place] [address] Health Maintenance Due Date Last Done Comments Annual Medicare Wellness Visit 2019 DTaP, Tdap and Td Vaccines (2 - Td or Tdap) 03/04/2023 03/04/2013 COVID-19 Vaccine (4 - season) 2025 05/24/2023, 03/01/2022, 03/01/2022 Influenza Adult (#1) 2025 02/28/2023, 03/01/2022, 03/29/2021, Additional history exists Mammogram Screening 09/22/2026 09/22/2024, 09/02/2023, 08/31/2022, Additional history exists Colorectal Cancer Screening Colonoscopy (10 Years) 10/12/2029 10/12/2024, 04/14/2024, 12/30/2021, Additional history exists Zoster Vaccines Completed 04/15/2020, 02/10/2020 Hepatitis C Completed 04/30/2022 Pneumococcal Vaccine: 50+ Years Completed 05/13/2023, 04/22/2019 RSV Immunization or 60+ Years Completed 05/24/2023 Dexa Scan (General) Completed 09/02/2023, 09/02/2023, 09/02/2023, Additional history exists PHQ-2 (Physician [place]) Completed 11/18/2024 Hepatitis A Vaccines Aged Out No long er eligible based on patient's age to complete this topic Meningococcal B Vaccine Aged Out No l onger eligible based on patient's age to complete this topic Meningococcal Vaccine Aged Out No breanna brad eligible based on patient's age to complete this topic RSV Immunizations Under 20 Months Aged Out No longer eligible based on patient's age to complete this topic Procedures Procedure Name Priority Date/Time Associated Diagnosis Comments LIPID PANEL Routine 04/30/2025 10:10 AM AGRICULTURAL EQUIPMENT SALES ENGINEER Hyperlipidemia, unspecified hyperlipidemia type HEMOGLOBIN, GLYCOSYLATED Routine 04/30/2025 10:10 AM AGRICULTURAL EQUIPMENT SALES ENGINEER Elevated blood sugar COMPREHENSIVE METABOLIC PANEL Routine 04/30/2025 10:10 AM AGRICULTURAL EQUIPMENT SALES ENGINEER Primary hypertension COLONOSCOPY GENERIC (SCAN ORDER) 10/12/2024 BONE DENSITY GENERIC (SCAN ORDER) 09/02/2023 MAMMOGRAM GENERIC (SCAN ORDER) Routine 08/31/2022 HEPATITIS C ANTIBODY W/RFX TO HCV RNA Routine 04/30/2022 9:30 AM AGRICULTURAL EQUIPMENT SALES ENGINEER Need for hepatitis C screening test from Last 3 Months or Most Recently Relevant to Health Maintenance Results * (ABNORMAL) LIPID PANEL (04/30/2025 10:10 AM AGRICULTURAL EQUIPMENT SALES ENGINEER) CHOLESTEROL 182 100 - 199 mg/dL [facility] TRIGLYCERIDES 130 0 - 149 mg/dL [facility] HDL 48 >39 mg/dL [facility] VLDL CALCULATION 23 5 - 40 mg/dL [facility] LDL (CALCULATED) 111(H) 0 - 99 mg/dL [facility] 1 04/30/2025 10:1 0 AM AGRICULTURAL EQUIPMENT SALES ENGINEER 04/30/2025 Narrative [facility] - 05/01/2025 7:09 AM AGRICULTURAL EQUIPMENT SALES ENGINEER Performed at: 01 - [facility] [id number] Side Stitching Machine Operator: Kwabena Lopez PhD, Phone: [phone] us Columba Rowe PA-C LABORATORY Final Resu lt [facility] [address] [place] [address] [facility] * (ABNORMAL) HEMOGLOBIN, GLYCOSYLATED (04/30/2025 10:10 AM AGRICULTURAL EQUIPMENT SALES ENGINEER) HGB A1C 6.1(H) 4.8 - 5.6 % [facility] Comment: Prediabetes: 5.7 - 6.4 Diabetes: >6.4 Glycemic control for adults with diabetes: <7.0 04/30/2025 10:1 0 AM AGRICULTURAL EQUIPMENT SALES ENGINEER 04/30/2025 Narrative [facility] - 05/01/2025 7:09 AM AGRICULTURAL EQUIPMENT SALES ENGINEER Performed at: 01 - [facility] [id number] Side Stitching Machine Operator: Kwabena Lopez PhD, Phone: [phone] us Columba Rowe PA-C LABORATORY Final Resu lt [facility] [address] [place] [address] [facility] * (ABNORMAL) COMPREHENSIVE METABOLIC PANEL (04/30/2025 10:10 AM AGRICULTURAL EQUIPMENT SALES ENGINEER) [facility] GLUCOSE 100(H) 70 - 99 mg/dL [facility] BUN 18 8 - 27 mg/dL [facility] CREATININE S/P/B 0.68 0.57 - 1.00 mg/dL [facility] GFR ESTIMATE 93 >59 mL/min/1.7 3 [facility] BUN CREATININE RATIO 26 12 - 28 [facility] SODIUM S/P/B 140 134 - 144 mmol/L [facility] POTASSIUM S/P/B 3.9 3.5 - 5.2 mmol/L [facility] CHLORIDE S/P/B 100 96 - 106 mmol/L [facility] CO2 24 20 - 29 mmol/L [facility] CALCIUM S/P/B 9.3 8.7 - 10.3 mg/dL [facility] TOTAL PROTEIN S/P/B 6.8 6.0 - 8.5 g/dL [facility] ALBUMIN S/P/B 4.3 3.8 - 4.8 g/dL [facility] GLOBULIN 2.5 1.5 - 4.5 g/dL [facility] BILIRUBIN TOTAL S/P/B 0.4 0.0 - 1.2 mg/dL [facility] ALKALINE PHOSPHATASE S/P/B 101 49 - 135 IU/L [facility] AST 17 0 - 40 IU/L [facility] ALT 15 0 - 32 IU/L [facility] 1 04/30/2025 10:1 0 AM AGRICULTURAL EQUIPMENT SALES ENGINEER 04/30/2025 Narrative [facility] - 05/01/2025 7:09 AM AGRICULTURAL EQUIPMENT SALES ENGINEER Performed at: 01 - [facility] [address] [id number] Side Stitching Machine Operator: Kwabena Lopez PhD, Phone: [phone] Columba Rowe PA-C LABORATORY Final Resu lt Performing Organization Address [facility]/ZIP Co de Phone Number [facility] [address] [place] [address] [facility] * COLONOSCOPY GENERIC (SCAN ORDER) (10/12/2024) 10/12/2024 [facility] Scanned SCANNING Final Resu lt * BONE DENSITY GENERIC (SCAN ORDER) (09/02/2023) Anatomical Region Laterality Modality Other 09/02/2023 [facility] Scanned SCANNING Final Resu lt * MAMMOGRAM (08/31/2022) Anatomical Region Laterality Modality Other [facility] Scanned SCANNING Final Resu lt * HEPATITIS C ANTIBODY W/RFX TO HCV RNA ([facility] ONLY) (04/30/2022 9:30 AM AGRICULTURAL EQUIPMENT SALES ENGINEER) HEPATITIS C AB <0.1 0.0 - 0.9 s/co ratio [facility] INTERPRETATION Comment [facility] Comment: Negative Not infected with HCV, unless recent infection is suspected or other evidence exists to indicate HCV infection. 04/30/2022 9:30 AM AGRICULTURAL EQUIPMENT SALES ENGINEER 04/30/2022 Narrative [facility] - 05/01/2022 6:10 AM AGRICULTURAL EQUIPMENT SALES ENGINEER Performed at: 01 - [facility] [id number] Side Stitching Machine Operator: Kwabena Lopez PhD, Phone: [phone] Columba Rowe PA-C LABORATORY Final Resu lt Performing Organization Address City/[facility]/ZIP Co de Phone Number [facility] [address] [place] [address] [facility] 1 from Last 3 Months or Most Recently Relevant to Health Maintenance Insurance MEDICARE GENERIC - COMMERCIAL Care Teams Social Media Job Titles Relationship Specialty Start Date End Date Columba Rowe PA-C [address] [place] [phone] PCP - General PHYSICIAN OFFICE CLIN ASST 03/01/21
--- OUTSIDE RECORDS SUMMARY | 2025-05-19 12:35 | XMS_ITS | Clinical Summary ---
Author Organization [facility] Chelsea moody Lainey Address [address] [place] [address] Care Team Providers Care Electric Tool Repairer Name Role Phone Unavailable Primary Care Provider [...] st Contact Info) Description 06/08/2025 10:30 AM WOOL HAT FORMING MACHINE TENDER Office Visit [facility] Oncology and Hematology - [place] [address] [place] [address] Elle Oleary MD [address] [place] [address] Health Maintenance Due Date Last [...] 50+ YEARS Completed 05/13/2023 , 04/22/2019 Insurance [facility] [id number]
--- OUTSIDE RECORDS SUMMARY | 2025-05-19 12:35 | XMS_ITS | Clinical Summary ---
Author Organization [facility] Medical Office Building [address] [place] [address] Care Team Providers Care Legal Services Professional Name Role Phone Columba Rowe Primary Care Provider [phone] Surgical History Surgery Date Site/Laterality Comments HYSTERECTOMY Social History Tobacco Use Types Packs/Day Years Used Date Smoking Tobacco: Never Assessed Comments No Sex and Gender Information Value Date Recorded Sex Assigned at Not on file Legal Sex Female 1:47 AM TOOL DRAWING CHECKER Gender Identity Not on file Sexual Orientation [...] age 40, based on guidelines of the [employer] (ACR Practice Parameter for the Performance of Screening and Diagnostic Mammography) and [employer]. For women [...] has taken/is taking Fosamax, vitamin-D and calcium. 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 TW: TW Report ID: [id number] Reading Location: [id number] Procedure Note Winifred Gaspar MD - 09/02/2023 EXAM DESCRIPTION: DEXA AXIAL SKELETON BONE DENSITY 1 OR MORE SITES REASON FOR STUDY: 68 y/o year old F with given history of:Postmenopausal status. History of smoking. Patient has taken/is taking Fosamax,vitamin-D and calcium. 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 TW: TOMI Report ID: [id number] Reading Location: [place] [address] Columba GARCIA DXA PROCEDURES Final Resul t from Last 3 Months or Most Recently Relevant to Health Maintenance Insurance MEDICARE [facility] HEALTH PLAN [facility] HMO/PPO Address: [address] [address] [place] [address] Care Teams Legal Services Professional Relationship Specialty Start Date End Date Columba Rwoe PA [address] [place] [phone] PCP - General Physician Skip Locator 09/07/24
--- OUTSIDE RECORDS SUMMARY | 2025-05-19 12:35 | XMS_ITS | Encounter Summary ---
Author Organization [facility] Address [address] [place] [address] Care Team Providers Care Reporting Specialist Name Role Phone Columba Rowe PA-C Primary Care Provider +1- [phone] Encounter Details Date Type Department Care Team (Late st Contact Info) Description 05/01/2025 Results Follow-Up [facility] Family Medicine - [address] [phone] Columba Rowe PA-C [address] [place] [address] COMPREHENSIVE METABOLIC PANEL, HEMOGLOBIN, GLYCOSYLATED, LIPID PANEL Social History Tobacco Use Types Packs/Day Years Used Date Smoking Tobacco: Every Day Cigarettes 1 15 Smokeless Tobacco: Never Alcohol Use Standard Drinks/Week Comments Not Currently [...] CDT Gender Identity Female 06/30/2021 11:18 AM PARTY COORDINATOR Sexual Orientation Straight 06/30/2021 11 :18 AM PARTY COORDINATOR documented as of this encounter Plan of Treatment Upcoming Encounters Date Type Department Care Team (Late st Contact Info) Description 11/10/2025 10:00 AM CDT Office Visit [facility] Family Medicine - [place] [address] [place] [address] Columba Rowe PA-C [address] [place] [address] documented as of this encounter Visit Diagnoses Not on filedocumented in this encounter Additional Health Concerns Assessment Noted Time PHQ-9 Depression Total Score: 0 03/29/20 21 10:07 AM CDT documented as of this encounter Care Teams Reporting Specialist Relationship Specialty Start Date End Date Columba Rowe PA-C [address] [place] [address] PCP - General PHYSICIAN NUCLEAR EQUIPMENT SALES ENGINEER 03/01/21 documented as of this encounter
== END 2025-05-19 11:20 | disposition home or self-care (01) ==
PROVIDERS: Emergency Provider Emergency Medicine
DX: S02.2XXA Fracture of nasal bones, initial encounter for closed fracture (principal); I10 Essential (primary) hypertension; E78.5 Hyperlipidemia, unspecified; F41.9 Anxiety disorder, unspecified; F17.210 Nicotine dependence, cigarettes, uncomplicated; M47.812 Spondylosis without myelopathy or radiculopathy, cervical region; W18.39XA Other fall on same level, initial encounter
CPT/HCPCS: 70450; 70486; 72125; 99284

== ENCOUNTER 2025-06-14 10:48 | Outpatient (CLI) | payer MEDICARE, SELFPAY ==
--- NOTE | 2025-06-14 | CONSULT_PTH ---
PATIENT: Latoya Peraza LOC: [facility] U#:[id number] AGE/SX: 70/F ROOM: RE06/14/[address]: Robert Mancera MD : 1955 BED: DIS: 06/14/2025 SPEC #: [id number] RECD: 06/14/25 14:30 STATUS: [place] #: [id number] JEFFRY: 06/14/25 00:[address]: Robert Mancera DEPT: [facility] Consult RECD BY: Jorge Arriaza ENTERED: 06/14/25 14:32 SP TYPE: Consult OT DR: PHYSICIAN NOT ON STAFF Tissues: A - Peripheral Smear Procedures: Hematology Consult
--- NOTE | 2025-06-14 11:24 | CY_PTH ---
PATIENT: Latoya Peraza LOC: [facility] U#:[id number] AGE/SX: 70/F ROOM: RE06/14/[address]: Robert Mancera MD : 1955 BED: DIS: 06/14/2025 SPEC #: [id number] RECD: 06/15/25 09:27 STATUS: ENT REQ #: [id number] JEFFRY: 06/14/25 11:[address]: Robert Mancera DEPT: [facility] Cytology RECD BY: Debbie Leyva ENTERED: 06/15/25 09:29 SP TYPE: Cytology OTHR DR: PHYSICIAN NOT ON STAFF Tissues: A - Flow Procedures: Flow Cytometry
[2025-06-14 11:27] LABS: Hematocrit 46.7 % (37.0-47.0); Hemoglobin 15.8 g/dL (12.0-15.0); Immature Granulocyte Percent A 0.2 % (0-0.5); Lymphocytes Absolute Auto 2.95 K/mm3 (0.9-3.2); Mean Corpuscular HGB Conc 33.8 g/dl (32-36); Mean Corpuscular Hemoglobin 31.5 pg (26-34); Mean Corpuscular Volume 93.2 fl (80-100); Nucleated Red Blood Cells Absolute Auto 0.000 K/mm3 (0.0-0.012); Nucleated Red Blood Cells Perc 0.0 % (0.0-0.2); Platelet Count Result 347 k/mm3 (150-375); Red Blood Count 5.01 M/mm3 (4.2-5.4); White Blood Count 16.5 K/mm3 (4.5-10.0)
--- OUTSIDE RECORDS SUMMARY | 2025-06-14 11:27 | XMS_ITS | Encounter Summary ---
Author Organization [facility] Address [address] [place] [address] Care Team Providers Care Blasting Entry Specialist Name Role Phone Columba Rowe PA-C Primary Care Provider +1- [phone] Encounter Details Date Type Department Care Team (Late st Contact Info) Description 05/01/2025 Results Follow-Up [facility] Family Medicine - [address] [phone] Columba Rowe PA-C [address] [place] [address] COMPREHENSIVE METABOLIC PANEL, HEMOGLOBIN, GLYCOSYLATED, LIPID PANEL [...] CDT Gender Identity Female 06/30/2021 11:18 AM RADIOLOGIC TECHNOLOGIST CHIEF Sexual Orientation Straight 06/30/2021 11 :18 AM RADIOLOGIC TECHNOLOGIST CHIEF documented as of this encounter Plan of Treatment Upcoming Encounters Date Type Department Care Team (Late st Contact Info) Description 11/10/2025 10:00 AM CDT Office Visit [facility] Family Medicine - [place] [address] [place] [address] Columba Rowe PA-C [address] [place] [address] documented as of this encounter Visit Diagnoses Not on filedocumented in this encounter Additional Health Concerns Assessment Noted Time PHQ-9 Depression Total Score: 0 03/29/20 21 10:07 AM CDT documented as of this encounter Care Teams Blasting Entry Specialist Relationship Specialty Start Date End Date Columba Rowe PA-C [address] [place] [address] PCP - General PHYSICIAN BANDING MACHINE OPERATOR 03/01/21 documented as of this encounter
--- OUTSIDE RECORDS SUMMARY | 2025-06-14 11:27 | XMS_ITS | Clinical Summary ---
Author Organization [facility] Medical Office Building [address] [place] [address] Care Team Providers Care Warehouse Logistics Coordinator Name Role Phone Columba Rowe Primary Care Provider [phone] Surgical History Surgery Date Site/Laterality Comments HYSTERECTOMY Social History Tobacco Use Types Packs/Day Years Used Date Smoking Tobacco: Never Assessed Comments No Sex and Gender Information Value Date Recorded Sex Assigned at Not on file Legal Sex Female 1:47 AM CUSTOMER COUNTER ASSOCIATE Gender Identity Not on file Sexual Orientation [...] age 39, based on guidelines of the [place] [employer] (ACR Practice Parameter for the Performance of Screening and Diagnostic Mammography) and [place] [employer]. For women [...] has taken/is taking Fosamax, vitamin-D and calcium. Np/Model: FullContact A (S/N [id number]) CLINICAL INFORMATION: Current height: 65 inches Maximum [...] Winifred Gaspar M.D. TW: TW Report ID: [id number] Reading Location: [id number] Procedure Note Winifred Gaspar MD - 09/02/2023 EXAM DESCRIPTION: DEXA AXIAL SKELETON BONE DENSITY 1 OR MORE SITES REASON FOR STUDY: 68 y/o year old F with given history of:Postmenopausal status. History of smoking. Patient has taken/is taking Fosamax,vitamin-D and calcium. Np/Model: FullContact A (S/N [id number]) CLINICAL INFORMATION: Current height: 65 inches Maximum [...] Winifred Gaspar M.D. TW: TOMI Report ID: [id number] Reading Location: [place] [address] Columba GARCIA DXA PROCEDURES Final Resul t from Last 3 Months or Most Recently Relevant to Health Maintenance Insurance MEDICARE [facility] HEALTH PLAN INCLUDES THE [facility] HMO/PPO Address: [address] [place]do [place] [address] [facility] Care Teams Warehouse Logistics Coordinator Relationship Specialty Start Date End Date Columba Rowe PA [address] [place] [address] PCP - General Physician Interventional Radiology Technologist 09/07/24
--- OUTSIDE RECORDS SUMMARY | 2025-06-14 11:27 | XMS_ITS | Clinical Summary ---
Author Organization [facility] Address [address] [place] [address] Care Team Providers Care Technical Healthcare Consultant Name Role Phone Unavailable Primary Care Provider Unavailabl e Allergies No known active allergies Medications alendronate (FOSAMAX) 35 mg tablet Take 35 mg by mouth every 7 days. 02/01/2025 Active atorvastatin (LIPITOR) 10 mg tablet Take 10 mg by mouth daily. 08/10/2024 Active amLODIPine (NORVASC) 10 mg tablet Take 10 mg by mouth daily. 11/16/2024 Active citalopram (CeleXA) 40 mg tablet Take 40 mg by mouth daily. 01/19/2025 Active hydroCHLOROthiaz lucy 25 mg tablet Take 25 mg by mouth daily. 04/05/2025 Active aspirin (ECOTRIN EC) 81 mg Tablet, Delayed Release (E.C.) Take 81 mg by mouth daily. Active multivitamin (DAILY-RICHARD) tablet Take 1 Tablet by mouth daily. Active Cholecalciferol, Vitamin D3, 50 mcg (2,000 unit) Capsule Take 50 mcg by mouth daily. Active Active Problems Problem Noted Date Diagnosed Date ASAF (generalized anxiety disorder) 06/08/2025 Leukocytosis (leucocytosis) 06/08/2025 Nicotine abuse 06/08/2025 Encounters Date Type Department Care Team Description 06/08/2025 10:30 AM PAPERHANGER Office Visit [facility] Oncology and Hematology - [place] [address] [place] [address] Tasha Parikh MD Lymphocytosis (Primary Dx); Anxiety state; Nicotine abuse; ASAF (generalized anxiety disorder) from Last 3 Months Family History Medical History Relation Name Comments No Known Problems Brother No Known Problems Child 1 Diabetes Child 2 No Known Problems Father Stomach Cancer Mother Relation Name Status Comments Brother Alive Child 1 Alive Child 2 Alive Father Mother Social History Tobacco Use Types Packs/Day Years Used Date Smoking Tobacco: Every Day Cigarettes 1 30 Started: 06/08/1995 Smokeless Tobacco: Never Tobacco Cessation:Ready to Q uit: Not Asked; Counseling Given: Not Answered Alcohol Use Standard Drinks/Week Comments Yes 0 (1 standard drink = 0.6 oz pur e alcohol) Occasionally Comments Unknown Sex and Gender Information Value Date Recorded Sex Assigned at Not on file Legal Sex Female 1:35 PM CDT Gender Identity Not on file Sexual Orientation Not on file Last Filed Vital Signs Vital Sign Reading Time Taken Comments Blood Pressure 137/69 06/08/2025 10:14 AM PAPERHANGER Pulse 82 06/08/2025 10:14 AM PAPERHANGER Temperature 36.9 C (98.5 F) 06/08/2025 10:14 AM PAPERHANGER Respiratory Rate 16 06/08/2025 10:14 AM PAPERHANGER Oxygen Saturation 92% 06/08/2025 10:14 AM PAPERHANGER Inhaled Oxygen Concentration - - Weight 70.9 kg (156 lb 3.2 oz) 06/08/2025 10:14 AM PAPERHANGER Height 167.6 cm (5' 6) 06/08/2025 10:14 AM PAPERHANGER Body Mass Index 25.21 06/08/2025 10:14 AM PAPERHANGER Plan of Treatment Upcoming Encounters Date Type Department Care Team (Late st Contact Info) Description 06/28/2025 4:30 PM PAPERHANGER Telephone Check Up [facility] Oncology and Hematology - [place] [address] [facility] [address] [place] [address] Robert Mancera MD [address] [facility] [address] [place] [address] Health Maintenance Due Date Last Done Comments Traditional Medicare (ACO) A nnual Wellness Visit 1973 FIT-DNA Q 3 years 1999 FIT/FOBT Q 1 year 1999 Flex Sig/CT Colonography Q 5 years 1999 Lung Cancer Screening 2004 DTAP/TDAP/TD VACCINES (2 - T d or Tdap) 03/04/2023 03/04/2013 INFLUENZA VACCINE (#1) 2025 3, 03/01/2022, 03/29/2021, Additional history exists COVID-19 Vaccine (2 - 2024-2 6 season) 2025 03/01/2022 BREAST CANCER SCREENING 09/22/2025 09/23/19 25, 09/22/2024, 09/02/2023, Additional history exists OSTEOPOROSIS SCREENING 09/01/2028 4, 09/02/2023, 09/02/2023, Additional history exists RSV VACCINE (60+ or ) (1 - 1-dose 75+ series) 2029 COLORECTAL SCREENING 10/12/2034 10/12/2024 Colorectal Cancer Screening 10/12/2034 ZOSTER VACCINE Completed 04/15/2020, 02/10/2020 PNEUMOCOCCAL VACCINE 50+ YEARS Completed 05/13/2023 , 04/22/2019 Insurance MEDICARE PART A AND B
--- OUTSIDE RECORDS SUMMARY | 2025-06-14 11:27 | XMS_ITS | Clinical Summary ---
Author Organization [facility] Address [facility] [place] [address] Care Team Providers Care Cell Maker Name Role Phone Columba Rowe PA-C Primary Care Provider +1- [phone] Allergies No known active allergies Medications HUMIRA [...] Department Care Team Description 05/05/2025 3:40 PM MECHANISM ASSEMBLER Office Visit [address] [address] Columba Rowe PA-C Anxiety (Patient present for Anxiety with labs) 05/05/2025 Travel 05/01/2025 Results Follow-Up [address] [address] Columba Rowe PA-C COMPREHENSIVE METABOLIC PANEL, HEMOGLOBIN, [...] CDT Gender Identity Female 06/30/2021 11:18 AM MECHANISM ASSEMBLER Sexual Orientation Straight 06/30/2021 11 :18 AM MECHANISM ASSEMBLER Last Filed Vital Signs Vital Sign Reading Time Taken Comments Blood Pressure 130/60 05/05/2025 4:01 PM MECHANISM ASSEMBLER Pulse 92 05/05/2025 3:35 PM MECHANISM ASSEMBLER Temperature 36.4 C (97.6 F) 05/05/2025 3:35 PM MECHANISM ASSEMBLER Respiratory Rate 16 05/05/2025 3:35 PM MECHANISM ASSEMBLER Oxygen Saturation 100% 05/05/2025 3:35 PM MECHANISM ASSEMBLER Inhaled Oxygen Concentration - - Weight 72.1 kg (159 lb) 05/05/2025 3:35 PM MECHANISM ASSEMBLER Height 165.1 cm (5' 5) 01/19/2025 10:50 AM CDT Body Mass Index 26.46 01/19/2025 10:50 AM CDT Plan of Treatment Upcoming Encounters Date Type Department Care Team (Late st Contact Info) Description 11/10/2025 10:00 AM CDT Office Visit [facility] Family Medicine - [place] [place] [phone] Columba Rowe PA-C [address] [place] [address] Health Maintenance Due Date Last Done Comments [...] 09/02/2023, 09/02/2023, Additional history exists PHQ-2 (Physician [place]) Completed 11/18/2024 Hepatitis A Vaccines Aged Out [...] Comments LIPID PANEL Routine 04/30/2025 10:10 AM MECHANISM ASSEMBLER Hyperlipidemia, unspecified hyperlipidemia type HEMOGLOBIN, GLYCOSYLATED Routine 04/30/2025 10:10 AM MECHANISM ASSEMBLER Elevated blood sugar COMPREHENSIVE METABOLIC PANEL Routine 04/30/2025 10:10 AM MECHANISM ASSEMBLER Primary hypertension COLONOSCOPY GENERIC (SCAN ORDER) 10/12/2024 BONE DENSITY GENERIC (SCAN ORDER) 09/02/2023 MAMMOGRAM GENERIC (SCAN ORDER) Routine 08/31/2022 HEPATITIS C ANTIBODY W/RFX TO HCV RNA Routine 04/30/2022 9:30 AM MECHANISM ASSEMBLER Need for hepatitis C screening test from Last 3 Months or Most Recently Relevant to Health Maintenance Results * (ABNORMAL) LIPID PANEL (04/30/2025 10:10 AM MECHANISM ASSEMBLER) CHOLESTEROL 182 100 - 199 mg/dL [facility] TRIGLYCERIDES 130 0 - 149 mg/dL [facility] HDL 48 >39 mg/dL [facility] VLDL CALCULATION 23 5 - 40 mg/dL [facility] LDL (CALCULATED) 111(H) 0 - 99 mg/dL [facility] 04/30/2025 10:1 0 AM MECHANISM ASSEMBLER 04/30/2025 Narrative [facility] - 05/01/2025 7:09 AM MECHANISM ASSEMBLER Performed at: 01 - [facility] [id number] History Instructor: Kwabena Lopez PhD, Phone: [phone] us Columba Rowe PA-C LABORATORY Final Resu lt [facility] [address] [place] [address] [facility] * (ABNORMAL) HEMOGLOBIN, GLYCOSYLATED (04/30/2025 10:10 AM MECHANISM ASSEMBLER) HGB A1C 6.1(H) 4.8 - 5.6 % [facility] Comment: Prediabetes: 5.7 - 6.4 Diabetes: >6.4 Glycemic control for adults with diabetes: <7.0 04/30/2025 10:1 0 AM MECHANISM ASSEMBLER 04/30/2025 Narrative [facility] - 05/01/2025 7:09 AM MECHANISM ASSEMBLER Performed at: 01 - [facility] [id number] History Instructor: Kwabena Lopez PhD, Phone: [phone] us Columba Rowe PA-C LABORATORY Final Resu lt [facility] [address] [place] [address] [facility] * (ABNORMAL) COMPREHENSIVE METABOLIC PANEL (04/30/2025 10:10 AM MECHANISM ASSEMBLER) [facility] GLUCOSE 100(H) 70 - 99 mg/dL [facility] [...] IU/L [facility] 1 04/30/2025 10:1 0 AM MECHANISM ASSEMBLER 04/30/2025 Narrative [facility] - 05/01/2025 7:09 AM MECHANISM ASSEMBLER Performed at: 01 - [facility] [address] [id number] History Instructor: Kwabena Lopez PhD, Phone: [phone] Columba Rowe PA-C LABORATORY Final Resu lt Performing Organization Address [facility]/ZIP Co de Phone Number [facility] [address] [place] [address] [facility] * COLONOSCOPY GENERIC (SCAN ORDER) (10/12/2024) 10/12/2024 [facility] Scanned SCANNING Final Resu lt * BONE DENSITY GENERIC (SCAN ORDER) (09/02/2023) Anatomical Region Laterality Modality Other 09/02/2023 [facility] Scanned SCANNING Final Resu lt * MAMMOGRAM (08/31/2022) Anatomical Region Laterality Modality Other [facility] Scanned SCANNING Final Resu lt * HEPATITIS C ANTIBODY W/RFX TO HCV RNA ([facility] ONLY) (04/30/2022 9:30 AM MECHANISM ASSEMBLER) HEPATITIS C AB <0.1 0.0 - 0.9 s/co ratio [facility] INTERPRETATION Comment [facility] Comment: Negative Not infected with HCV, unless recent infection is suspected or other evidence exists to indicate HCV infection. 04/30/2022 9:30 AM MECHANISM ASSEMBLER 04/30/2022 Narrative [facility] - 05/01/2022 6:10 AM MECHANISM ASSEMBLER Performed at: 01 - [facility] [id number] History Instructor: Kwabena Lopez PhD, Phone: [phone] Columba Rowe PA-C LABORATORY Final Resu lt Performing Organization Address City/[facility]/ZIP Co de Phone Number [facility] [address] [place] [address] [facility] 1 from Last 3 Months or Most Recently Relevant to Health Maintenance Insurance MEDICARE GENERIC - COMMERCIAL Care Teams Cell Maker Relationship Specialty Start Date End Date Columba Rowe PA-C [address] [place] [address] PCP - General PHYSICIAN NETBACKUP ADMINISTRATOR 03/01/21
[2025-06-14 14:18] LABS: Add Urine Microscopic? YES; Appearance Urine Clear (Clear); Glucose Urine UA Negative (Negative); Leukocyte Esterase Ur Trace LEU/UL (Negative); Nitrate Urine Negative (Negative); Non Pathogenic Casts 0-2; Specific Grav Ur 1.021 (1.001-1.035)
[2025-06-14 16:26] LABS: Alanine Aminotransferase 22 U/L (6-35); Albumin Level 4.4 g/dL (3.5-5.1); Alkaline Phosphatase 111 U/L (38-126); Anion Gap 8 mmol/L (4-12); Aspartate Amino Transferase 39 U/L (14-36); Bilirubin,Total 0.8 mg/dL (0.2-1.3); Blood Urea Nitrogen 16 mg/dL (7-17); CRP 1.4 mg/dL (<1.0); Calcium 9.4 mg/dL (8.4-10.2); Carbon Dioxide 27 mmol/L (22-30); Chloride 102 mmol/L (98-107); Estimated Glomerular Filt Rate > 60; Glucose 98 mg/dL (65-110); Potassium 3.4 mmol/L (3.4-5.0); Sodium 137 mmol/L (137-145); Total Protein 8.0 g/dL (6.3-8.2)
[2025-06-14 16:55] LABS: Thyroid Stimulating Hormone 1.970 uIU/mL (0.465-4.680)
== END 2025-06-14 10:49 | disposition home or self-care (01) ==
LOC: ANHLAB 10:52
PROVIDERS: Visit Provider Internal Medicine Hematology & Oncology
DX: D72.820 Lymphocytosis (symptomatic) (principal); I10 Essential (primary) hypertension
CPT/HCPCS: 36415; 80053; 81001; 84443; 85025; 85652; 86140; 86430; 88184

== ENCOUNTER 2025-06-15 15:04 | Outpatient (CLI) | payer MEDICARE, SELFPAY ==
--- OUTSIDE RECORDS SUMMARY | 2025-06-15 15:13 | XMS_ITS | Encounter Summary ---
Author Organization [facility] Address [address] [place] [address] Care Team Providers Care Annealing Oven Operator Name Role Phone Columba Rowe PA-C Primary Care Provider +1- [phone] Encounter Details Date Type Department Care Team (Late st Contact Info) Description 05/01/2025 Results Follow-Up [facility] Family Medicine - [address] [phone] Columba Rowe PA-C [address] [place] [address] COMPREHENSIVE METABOLIC PANEL, HEMOGLOBIN, GLYCOSYLATED, LIPID PANEL [...] CDT Gender Identity Female 06/30/2021 11:18 AM ORGAN PIPE FINISHER Sexual Orientation Straight 06/30/2021 11 :18 AM ORGAN PIPE FINISHER documented as of this encounter Plan of Treatment Upcoming Encounters Date Type Department Care Team (Late st Contact Info) Description 11/10/2025 10:00 AM CDT Office Visit [facility] Family Medicine - [place] [address] [place] [address] Columba Rowe PA-C [address] [place] [address] documented as of this encounter Visit Diagnoses Not on filedocumented in this encounter Additional Health Concerns Assessment Noted Time PHQ-9 Depression Total Score: 0 03/29/20 21 10:07 AM CDT documented as of this encounter Care Teams Annealing Oven Operator Relationship Specialty Start Date End Date Columba Rowe PA-C [address] [place] [address] PCP - General PHYSICIAN TRIAL ATTORNEY 03/01/21 documented as of this encounter
--- OUTSIDE RECORDS SUMMARY | 2025-06-15 15:13 | XMS_ITS | Encounter Summary ---
Author Organization [facility] Address [address] [place] [address] Care Team Providers Care Hvac Technician Name Role Phone Unavailable Primary Care Provider Unavailabl e Encounter Details Date Type Department Care Team (Late Contact Info) Description 06/15/2025 Orders Only [facility] Oncology and Hematology [facility] [address] [place] [address] Robert Mancera MD [address] [place], [place] [address] [place] [phone] Social History Tobacco Use Types Packs/Day Years Used Date Smoking Tobacco: Every Day Cigarettes 1 30 Started: 06/08/1995 Smokeless Tobacco: Never Alcohol Use Standard Drinks/Week Comments Yes 0 (1 standard drink = 0.6 oz pur e alcohol) Occasionally Comments Unknown Sex and Gender Information Value Date Recorded Sex Assigned at Not on file Legal Sex Female 1:35 PM CDT Gender Identity Not on file Sexual Orientation Not on file documented as of this encounter Plan of Treatment Upcoming Encounters Date Type Department Care Team (Late Contact Info) Description 06/28/2025 4:30 PM PRESS WRITER Telephone Check Up [facility] Oncology and Hematology [facility] [address] [place] [address] Robert Mancera MD [address] [place] [phone] documented as of this encounter Procedures Procedure Name Priority Date/Time Associated Diagnosis Comments PERIPHERAL BLOOD SMEAR EVAL Routine 06/14/2025 1:44 PM PRESS WRITER documented in this encounter Results * PERIPHERAL BLOOD SMEAR EVAL (06/14/2025 1:44 PM PRESS WRITER) Blood us Robert Mancera MD HEMATOLOGY ORDERABLES Final Res ult documented in this encounter Visit Diagnoses Not on filedocumented in this encounter
--- OUTSIDE RECORDS SUMMARY | 2025-06-15 15:13 | XMS_ITS | Clinical Summary ---
Author Organization [facility] Address [address] [facility] [place] [address] Care Team Providers Care News Assignment Editor Name Role Phone No, Pcp CHARHOUSE WORKER Primary Care Provider Unavailabl e Social History Tobacco Use Types Packs/Day Years Used Date Smoking Tobacco: Never Assessed Comments Unknown Sex and Gender Information Value Date Recorded Sex Assigned at Not on file Legal Sex Female 12:04 PM EST Gender Identity Not on file Sexual Orientation Not on file Plan of Treatment Not on file Medical Devices Not on file Insurance MEDICARE Care Teams News Assignment Editor Relationship Specialty Start Date End Date No, Pcp, CHARHOUSE WORKER N/A Do not use PCP - General Family Medicine 05/07/20
--- OUTSIDE RECORDS SUMMARY | 2025-06-15 15:13 | XMS_ITS | Clinical Summary ---
Author Organization [facility] Ansonzuly moody Lainey Address [address] [place] [address] Care Team Providers Care Key Holder Name Role Phone Unavailable Primary Care Provider [...] Encounters Date Type Department Care Team Description 06/15/2025 Orders Only [facility] Oncology and Hematology - [place] [address] [place] [address] Robert Mancera MD 06/08/2025 10:30 AM ACCOUNTS RECEIVABLE SUPERVISOR Office Visit [facility] Oncology and Hematology - [place] [address] [place] [address] Tasha Parikh MD Lymphocytosis (Primary Dx); Anxiety [...] Comments Blood Pressure 137/69 06/08/2025 10:14 AM ACCOUNTS RECEIVABLE SUPERVISOR Pulse 82 06/08/2025 10:14 AM ACCOUNTS RECEIVABLE SUPERVISOR Temperature 36.9 C (98.5 F) 06/08/2025 10:14 AM ACCOUNTS RECEIVABLE SUPERVISOR Respiratory Rate 16 06/08/2025 10:14 AM ACCOUNTS RECEIVABLE SUPERVISOR Oxygen Saturation 92% 06/08/2025 10:14 AM ACCOUNTS RECEIVABLE SUPERVISOR Inhaled Oxygen Concentration - - Weight 70.9 kg (156 lb 3.2 oz) 06/08/2025 10:14 AM ACCOUNTS RECEIVABLE SUPERVISOR Height 167.6 cm (5' 6) 06/08/2025 10:14 AM ACCOUNTS RECEIVABLE SUPERVISOR Body Mass Index 25.21 06/08/2025 10:14 AM ACCOUNTS RECEIVABLE SUPERVISOR Plan of Treatment Upcoming Encounters Date Type Department Care Team (Late st Contact Info) Description 06/28/2025 4:30 PM ACCOUNTS RECEIVABLE SUPERVISOR Telephone Check Up [facility] Oncology and Hematology - [place] [address] [place] [address] Robert Mancera MD [address] [facility] [address] [place] [address] Health Maintenance Due Date Last [...] VACCINE 50+ YEARS Completed 05/13/2023 , 04/22/2019 Procedures Procedure Name Priority Date/Time Associated Diagnosis Comments PERIPHERAL BLOOD SMEAR EVAL Routine 06/14/2025 1:44 PM ACCOUNTS RECEIVABLE SUPERVISOR from Last 3 Months Results * PERIPHERAL BLOOD SMEAR EVAL (06/14/2025 1:44 PM ACCOUNTS RECEIVABLE SUPERVISOR) Blood Robert Mancera MD HEMATOLOGY ORDERABLES Final Res ult from Last 3 Months Insurance MEDICARE PART A AND B
--- OUTSIDE RECORDS SUMMARY | 2025-06-15 15:13 | XMS_ITS | Clinical Summary ---
Author Organization [facility] Address [facility] [place] [address] Care Team Providers Care Pump And Still Operator Name Role Phone Columba Rowe PA-C Primary Care Provider [phone] Allergies No known active allergies Medications HUMIRA [...] Department Care Team Description 05/05/2025 3:40 PM PATHOLOGY SUPERVISOR Office Visit [address] [address] Columba Rowe PA-C Anxiety (Patient present for Anxiety with labs) 05/05/2025 Travel 05/01/2025 Results Follow-Up [address] [address] Columba Rowe PA-C COMPREHENSIVE METABOLIC PANEL, HEMOGLOBIN, [...] CDT Gender Identity Female 06/30/2021 11:18 AM PATHOLOGY SUPERVISOR Sexual Orientation Straight 06/30/2021 11 :18 AM PATHOLOGY SUPERVISOR Last Filed Vital Signs Vital Sign Reading Time Taken Comments Blood Pressure 130/60 05/05/2025 4:01 PM PATHOLOGY SUPERVISOR Pulse 92 05/05/2025 3:35 PM PATHOLOGY SUPERVISOR Temperature 36.4 C (97.6 F) 05/05/2025 3:35 PM PATHOLOGY SUPERVISOR Respiratory Rate 16 05/05/2025 3:35 PM PATHOLOGY SUPERVISOR Oxygen Saturation 100% 05/05/2025 3:35 PM PATHOLOGY SUPERVISOR Inhaled Oxygen Concentration - - Weight 72.1 kg (159 lb) 05/05/2025 3:35 PM PATHOLOGY SUPERVISOR Height 165.1 cm (5' 5) 01/19/2025 10:50 AM CDT Body Mass Index 26.46 01/19/2025 10:50 AM CDT Plan of Treatment Upcoming Encounters Date Type Department Care Team (Late st Contact Info) Description 11/10/2025 10:00 AM CDT Office Visit [facility] - [place] [place] [id number] Columba Rowe PA-C [address] [place] [address] Health Maintenance Due Date Last Done Comments [...] 09/02/2023, 09/02/2023, Additional history exists PHQ-2 (Physician Fedora) Completed 11/18/2024 Hepatitis A Vaccines Aged Out [...] Comments LIPID PANEL Routine 04/30/2025 10:10 AM PATHOLOGY SUPERVISOR Hyperlipidemia, unspecified hyperlipidemia type HEMOGLOBIN, GLYCOSYLATED Routine 04/30/2025 10:10 AM PATHOLOGY SUPERVISOR Elevated blood sugar COMPREHENSIVE METABOLIC PANEL Routine 04/30/2025 10:10 AM PATHOLOGY SUPERVISOR Primary hypertension COLONOSCOPY GENERIC (SCAN ORDER) 10/12/2024 BONE DENSITY GENERIC (SCAN ORDER) 09/02/2023 MAMMOGRAM GENERIC (SCAN ORDER) Routine 08/31/2022 HEPATITIS C ANTIBODY W/RFX TO HCV RNA Routine 04/30/2022 9:30 AM PATHOLOGY SUPERVISOR Need for hepatitis C screening test from Last 3 Months or Most Recently Relevant to Health Maintenance Results * (ABNORMAL) LIPID PANEL (04/30/2025 10:10 AM PATHOLOGY SUPERVISOR) CHOLESTEROL 182 100 - 199 mg/dL [facility] TRIGLYCERIDES 130 0 - 149 mg/dL [facility] HDL 48 >39 mg/dL [facility] VLDL CALCULATION 23 5 - 40 mg/dL [facility] LDL (CALCULATED) 111(H) 0 - 99 mg/dL [facility] 1 04/30/2025 10:1 0 AM PATHOLOGY SUPERVISOR 04/30/2025 Narrative [facility] - 05/01/2025 7:09 AM PATHOLOGY SUPERVISOR Performed at: 01 - [facility] [id number] [employer] Received: Kwabena Lopez PhD, Phone: [phone] us Columba Rowe PA-C LABORATORY Final Resu lt [facility] [address] [place] [address] [facility] * (ABNORMAL) HEMOGLOBIN, GLYCOSYLATED (04/30/2025 10:10 AM PATHOLOGY SUPERVISOR) HGB A1C 6.1(H) 4.8 - 5.6 % [facility] Comment: Prediabetes: 5.7 - 6.4 Diabetes: >6.4 Glycemic control for adults with diabetes: <7.0 04/30/2025 10:1 0 AM PATHOLOGY SUPERVISOR 04/30/2025 Narrative [facility] - 05/01/2025 7:09 AM PATHOLOGY SUPERVISOR Performed at: 01 - [facility] [id number] [employer] Received: Kwabena Lopez PhD, Phone: [phone] us Columba Rowe PA-C LABORATORY Final Resu lt [facility] [address] [place] [address] [facility] * (ABNORMAL) COMPREHENSIVE METABOLIC PANEL (04/30/2025 10:10 AM PATHOLOGY SUPERVISOR) [facility] GLUCOSE 100(H) 70 - 99 mg/dL [facility] [...] IU/L [facility] 1 04/30/2025 10:1 0 AM PATHOLOGY SUPERVISOR 04/30/2025 Narrative [facility] - 05/01/2025 7:09 AM PATHOLOGY SUPERVISOR Performed at: 01 - [facility] [address] [id number] [employer] Received: Kwabena Lopez PhD, Phone: [phone] Columba Rowe PA-C LABORATORY Final Resu lt Performing Organization Address [facility]/ZIP Co de Phone Number [facility] [address] [place] [address] [facility] * COLONOSCOPY GENERIC (SCAN ORDER) (10/12/2024) 10/12/2024 [facility] Scanned SCANNING Final Resu lt * BONE DENSITY GENERIC (SCAN ORDER) (09/02/2023) Anatomical Region Laterality Modality Other 09/02/2023 [facility] Scanned SCANNING Final Resu lt * MAMMOGRAM (08/31/2022) Anatomical Region Laterality Modality Other [facility] Scanned SCANNING Final Resu lt * HEPATITIS C ANTIBODY W/RFX TO HCV RNA ([facility] ONLY) (04/30/2022 9:30 AM PATHOLOGY SUPERVISOR) HEPATITIS C AB <0.1 0.0 - 0.9 s/co ratio [facility] 1 INTERPRETATION Comment [facility] Comment: Negative Not infected with HCV, unless recent infection is suspected or other evidence exists to indicate HCV infection. 04/30/2022 9:30 AM PATHOLOGY SUPERVISOR 04/30/2022 Narrative [facility] - 05/01/2022 6:10 AM PATHOLOGY SUPERVISOR Performed at: 01 - [facility] [id number] [employer] Received: Kwabena Lopez PhD, Phone: [phone] Columba Rowe PA-C LABORATORY Final Resu lt Performing Organization Address City/[facility]/ZIP Co de Phone Number [facility] [address] [place] [address] [facility] 1 from Last 3 Months or Most Recently Relevant to Health Maintenance Insurance MEDICARE GENERIC - COMMERCIAL Care Teams Pump And Still Operator Relationship Specialty Start Date End Date Columba Rowe PA-C [address] [place] [id number] PCP - General PHYSICIAN PILLOWCASE TURNER 03/01/21
--- OUTSIDE RECORDS SUMMARY | 2025-06-15 15:13 | XMS_ITS | Clinical Summary ---
Author Organization [facility] [address] [place] [address] Care Team Providers Care Ict Educator Name Role Phone Columba Rowe Primary Care Provider [phone] Surgical History Surgery Date Site/Laterality Comments HYSTERECTOMY Social History Tobacco Use Types Packs/Day Years Used Date Smoking Tobacco: Never Assessed Comments No Sex and Gender Information Value Date Recorded Sex Assigned at Not on file Legal Sex Female 1:47 AM DRAFTER CHIEF DESIGN Gender Identity Not on file Sexual Orientation [...] age 39, based on guidelines of the [employer] (ACR Practice Parameter for the Performance of Screening and Diagnostic Mammography) and [employer]. For women [...] has taken/is taking Fosamax, vitamin-D and calcium. Leather Stretcher/Model: [employer] A (S/N [id number]) CLINICAL INFORMATION: Current height: 65 inches Maximum [...] Winifred Gaspar M.D. TW: TW Report ID: [id number] Reading Location: [id number] Procedure Note Winifred Gaspar MD - 09/02/2023 EXAM DESCRIPTION: DEXA AXIAL SKELETON BONE DENSITY 1 OR MORE SITES REASON FOR STUDY: 68 y/o year old F with given history of:Postmenopausal status. History of smoking. Patient has taken/is taking Fosamax,vitamin-D and calcium. Leather Stretcher/Model: [employer] A (S/N [id number]) CLINICAL INFORMATION: Current height: 65 inches Maximum [...] Winifred Gaspar M.D. TW: TOMI Report ID: [id number] Reading Location: [place] [address] Columba GARCIA DXA PROCEDURES Final Resul t from Last 3 Months or Most Recently Relevant to Health Maintenance Insurance MEDICARE [facility] HMO/PPO Address: [address] [place] [address] [facility] Care Teams Ict Educator Relationship Specialty Start Date End Date Columba Rowe PA [address] [place] [phone] PCP - General Physician Pigs Feet Finisher 09/07/24
[2025-06-23 16:08] LABS: Interpretation Negative (.)
== END 2025-06-15 15:05 | disposition home or self-care (01) ==
LOC: ANHLAB 15:04
PROVIDERS: Visit Provider Internal Medicine Hematology & Oncology
DX: D72.829 Elevated white blood cell count, unspecified (principal)
CPT/HCPCS: 81338